=== PATIENT | female | born 1970 | race Caucasian/White ===

== ENCOUNTER 2021-10-19 15:01 | Inpatient (IN) | payer MEDICARE, OTHER ==
[~2021-10-19] VITALS: Ht 157.5 cm; Wt 56.7 kg
--- NOTE | 2021-10-19 15:14 | NUR ---
Sent by the SNF staff due to agitation and behavioral aggression towards staff. AMBULATYORY, PLACED ON BED, AAOX4, CALM. KNOWN HX. ANXIETY DISORDER
[2021-10-19] MEDS ORDERED: OLANZAPINE 5 MG TABLET PO ONE (15:30)
--- NOTE | 2021-10-19 15:30 | NUR ---
COMPRESSED AIR PILE DRIVER OPERATOR AT BED SIDE
[2021-10-19] MEDS ORDERED: OLANZAPINE 5 MG TABLET ONE (15:34)
--- NOTE | 2021-10-19 15:45 | NUR ---
X-RAY TECH AT BED SIDE
[2021-10-19] MEDS ORDERED: METO25TA20 PO (16:05)
[2021-10-19] MEDS ORDERED: MIDO5TAB4 PO (16:05)
[2021-10-19] MEDS ORDERED: IBUP-2715 PO (16:05)
[2021-10-19] MEDS ORDERED: SPIR25TA6 PO (16:05)
[2021-10-19] MEDS ORDERED: FOLI0.8C PO (16:05)
[2021-10-19] MEDS ORDERED: TOPI25TA PO (16:05)
[2021-10-19] MEDS ORDERED: FURO-144 PO (16:05)
[2021-10-19] MEDS ORDERED: THIA100T70 PO (16:05)
[2021-10-19] MEDS ORDERED: ACET-868 PO (16:05)
[2021-10-19] MEDS ORDERED: ALLO100T PO (16:05)
[2021-10-19] MEDS ORDERED: ASPI-1169 PO (16:05)
[2021-10-19] MEDS ORDERED: QUET200T PO (16:05)
[2021-10-19 16:17] LABS: BASOPHILS % (AUTO) 0.8 % (0.0-2.0); EOSINOPHILS % (AUTO) 2.4 % (0.0-6.0); HEMATOCRIT 44 % (33-45); HEMOGLOBIN 14.2 g/dL (11.5-14.8); LYMPHOCYTES # (AUTO) 1.1 K/uL (0.8-4.8); MEAN CORPUSCULAR HGB CONC 33 g/dl (31.0-36.0); MEAN CORPUSCULAR VOLUME 84 fL (82-100); MONOCYTES # (AUTO) 0.7 K/uL (0.1-1.30); MONOCYTES % (AUTO) 13.1 % (2.0-12.0); NEUTROPHILS # (AUTO) 3.1 K/uL (1.8-8.9); NEUTROPHILS % (AUTO) 61.7 % (43.0-81.0); PLATELET COUNT (AUTO) 134 K/uL (150-450); RED BLOOD CELL COUNT(AUTO) 5.19 MIL/uL (4.0-5.2)
[2021-10-19 16:46] LABS: CALCIUM, SERUM 8.6 mg/dL (8.5-10.1); CARBON DIOXIDE 25 mmol/L (21-32); CHLORIDE 104 mmol/L (98-107); CREATININE 0.9 mg/dL (0.6-1.3); GLUCOSE 93 mg/dL (74-106); POTASSIUM 3.4 mmol/L (3.5-5.1); SODIUM SERUM 140 mmol/L (136-145); UREA NITROGEN, BLOOD 23 mg/dL (7-18)
[2021-10-19 16:54] LABS: ALANINE AMINOTRANSFERASE 19 U/L (12-78); ALBUMIN 3.4 g/dL (3.4-5.0); ALKALINE PHOSPHATASE 86 U/L (46-116); ASPARTATE AMINOTRANSFERASE 32 U/L (15-37); BILIRUBIN,DIRECT 1.3 mg/dL (0.0-0.2); BILIRUBIN,TOTAL 2.1 mg/dL (0.2-1.0)
--- NOTE | 2021-10-19 17:11 | NUR ---
URINE COLLECTED AND SENT TO LAB
[2021-10-19 17:13] LABS: ACETAMINOPHEN < 2 ug/ml (10-30); ALCOHOL, BLOOD < 3 mg/dL (0-0)
--- NOTE | 2021-10-19 17:32 | NUR ---
SWAB FOR COVID19 SENT TO LAB
--- NOTE | 2021-10-19 17:40 | NUR ---
called [facility] psych clinician. Was notified of pt status and has an eta of [id number]
[2021-10-19 18:11] LABS: BILIRUBIN,URINE NEGATIVE (NEGATIVE); COLOR,URINE YELLOW (YELLOW); LEUKOCYTE ESTERASE ,URINE NEGATIVE (NEGATIVE); NITRITE, URINE NEGATIVE (NEGATIVE); PH,URINE 5.5 (5.0-8.0); PROTEIN,URINE NEGATIVE (NEGATIVE); UGLUCOSE NEGATIVE (NEGATIVE)
[2021-10-19 18:14] LABS: BACTERIA,URINE None seen /HPF (None Seen); WBC,URINE 0-2 /HPF (0-3)
--- NOTE | 2021-10-19 19:40 | NUR ---
gps [id number]
--- NOTE | 2021-10-19 19:55 | NUR ---
[facility]SA SWAB COLLECTED AND SENT TO LAB. PATIENT'S BELONGINGS LIST DONE.
--- NOTE | 2021-10-19 19:55 | NUR ---
REPORT GIVEN TO JEIMY ARCOS
[2021-10-19] MEDS ORDERED: MIDODRINE HCL (5MG) 5 MG TABLET PO PRN ×2 (20:00→20:08)
[2021-10-19] MEDS ORDERED: ACETAMINOPHEN 325 MG TABLET PO PRN ×2 (20:00→21:00)
[2021-10-19] MEDS ORDERED: IBUPROFEN 200 MG TABLET PO PRN (20:00)
--- NOTE | 2021-10-19 20:02 | NUR ---
PATIENT BEING TRANSFERRED TO [facility]
[2021-10-19] MEDS ORDERED: BLOOD SUGAR DIAGNOSTIC 1 EACH STRIP IN ONE (21:00)
[2021-10-19] MEDS ORDERED: MAGNESIUM HYDROXIDE 30 ML UDC PO PRN (21:00)
[2021-10-19] MEDS ORDERED: TEMAZEPAM 7.5 MG CAPSULE PO PRN (21:00)
[2021-10-19] MEDS ORDERED: MAG HYDROX/AL HYDROX/SIMETH 30 ML UDC PO PRN (21:00)
--- NOTE | 2021-10-19 23:54 | NUR ---
GPS RN ADMITTING NOTES: RECEIVED PATIENT FROM ER AT 2009. PATIENT WAS BROUGHT IN BY ER ESCORT ON A STRETCHER. PATIENT IS ON A 5150 HOLD FOR GD, HOLD WAS PLACED ON 10/19/21 AT 1845. PER HOLD, PATIENT WAS BROUGHT TO ER BY AMBULANCE FROM [facility] D/T INCREASED AGITATION, REFUSING TO FOLLOW RULES AND REDIRECTION, CAUGHT SMOKING INSIDE HER ROOM WITH NO REGARD FOR HER OWN SAFETY AND SAFETY OF OTHERS. WHILE IN ER PATIENT WAS DISORGANIZED, MUMBLING AND DELUSIONAL STATING "THE TRAIN IS WATCHING ME AND THE OTHER PEOPLE". UPON FACE TO FACE EVALUATION, PATIENT IS A/O X1-2, APPEARS DEPRESSED, BLUNTED AFFECT, DISORGANIZED, DISORIENTED, LAUGHING INAPPROPRIATELY, ANXIOUS, POOR HISTORIAN, POOR INSIGHT. PATIENT [id number]. SKIN ASSESSMENT DONE/SKIN INTACT. PATIENT REFUSED PNEUMONIA VACCINE AND REFUSED TO SIGN ALL ADMISSION PAPERWORK. PER PATIENT, SHE IS VACCINATED AND THINKS "IT'S PFIZER, I HAD IT TWICE THIS YEAR" BUT CAN'T REMEMBER THE DATES. PATIENT BELONGINGS WERE INVENTORIED AND CONTRABAND REMOVED AND PLACED IN PATIENT CONTRABAND LOCKER AND SUPERVISORS SAFE. PATIENT HAVE NO S/S OF DISTRESS, RESPIRATION EVEN AND UNLABORED WITH EQUAL RISE AND FALL OF THE CHEST, ON ROOM AIR. PATIENT IS UNDER THE PSYCHIATRIC CARE OF DR ALTMAN AND MEDICAL CARE OF JAKOB. PATIENT IS ORIENTED TO STAFF AND UNIT. PATIENT RIGHTS BOOKLET AND PRESCRIPTION MEDICATION GUIDE GIVEN TO PATIENT. PATIENT OFFERED FLUID AND SNACKS TOLERATED. ALL PATIENT CARE NEEDS HAVE BEEN MET ANTICIPATED. PATIENT HAS NO NEED AT THIS TIME. BED IN LOW LOCKED POSITION, SIDE RAILS UP X2 FOR SAFETY. WILL CONTINUE TO MONITOR Q15 FOR SAFETY, MOOD AND BEHAVIOR.
[2021-10-20 00:17] VITALS: BP 101/71
[2021-10-20] MEDS: LORAZEPAM 0.5 MG TABLET PO PRN (01:52)
--- NOTE | 2021-10-20 01:55 | NUR ---
GPS RN NOTES: PATIENT REQUESTED FOR ANTI ANXIETY MEDICATION. ATIVAN 0.5MG 1TAB GIVEN PO AT 0152. WILL CONTINUE TO MONITOR.
[2021-10-20] MEDS: ALBUTEROL FS 2.5 MG/0.5 ML VIAL.NEB IH PRN ×2 (02:40→21:37)
--- NOTE | 2021-10-20 05:56 | NUR ---
GPS RN NOTES: PATIENT DID NOT GIVE ANY NAME TO NOTIFY OF HER ADMISSION. PER PATIENT NOT NOW.
[2021-10-20 07:35] LABS: CHOLESTEROL 112 mg/dL (<200); HDL CHOLESTEROL 25 mg/dL (40-60); LDL 76 mg/dL (0-99); TRIGLYCERIDES 81 mg/dL (30-150)
[2021-10-20 07:39] LABS: ALBUMIN 3.3 g/dL (3.4-5.0); BILIRUBIN,TOTAL 1.8 mg/dL (0.2-1.0); CALCIUM, SERUM 8.6 mg/dL (8.5-10.1); CREATININE 0.9 mg/dL (0.6-1.3); POTASSIUM 3.7 mmol/L (3.5-5.1); TOTAL PROTEIN, SERUM 6.7 g/dL (6.4-8.2)
[2021-10-20 08:00] VITALS: BP 100/63
[2021-10-20] MEDS: FUROSEMIDE 40 MG TABLET PO SCH (09:00)
[2021-10-20] MEDS: METOPROLOL TARTRATE 25 MG TABLET PO SCH (09:00)
[2021-10-20] MEDS: SPIRONOLACTONE 25 MG TABLET PO SCH (09:00)
[2021-10-20] MEDS: FOLIC ACID 1 MG TABLET PO SCH (09:09)
[2021-10-20] MEDS: ALLOPURINOL 100 MG TABLET PO SCH (09:09)
[2021-10-20] MEDS: TOPIRAMATE 25 MG TABLET PO SCH (09:09)
[2021-10-20] MEDS: THIAMINE HCL 100 MG TABLET PO SCH (09:09)
[2021-10-20] MEDS: ASPIRIN 81 MG TAB.CHEW PO SCH (09:09)
--- NOTE | 2021-10-20 10:23 | NUR ---
RN-CO: PATIENT IS COOPERATIVE TO CARE, PREOCCUPIED WITH HER OWN THOUGHTS BUT GUARDED, UNMOTIVATED TO SELFCARE. I WILL CONTINUE TO MONITOR.
--- NOTE | 2021-10-20 10:40 | NUR ---
CHRISTIAN Initial Discharge Plan: Pt currently resides at an assisted living located at [address] [place] [address], [facility]; ([phone]). SW attempted to contact pt's facility and the number was busy, SW will attempt again. Pt does not have any supportive contact at this time. CHRISTIAN will work with the MD, treatment team, and family to help coordinate appropriate discharge.
--- NOTE | 2021-10-20 10:41 | NUR ---
CHRISTIAN Clinical note: Patient placed on a 5150 hold for GD. Patient was agitated at her facility and was smoking in her room. Pt currently resides at an assisted living located at [address] [place] [address], [facility]; ([phone]). SW attempted to contact pt's facility and the number was busy, SW will attempt again. Pt does not have any supportive contact at this time.
--- NOTE | 2021-10-20 10:42 | NUR ---
Social Work Note/Substance Abuse Intervention: Patient was provided with a brief substance abuse intervention and referred to [facility] ([phone]), [facility] ([phone]), and [facility] ([phone]) for smoking.
--- NOTE | 2021-10-20 10:43 | NUR ---
Treatment Plan: Patient refused to sign treatment plan due to being suspicious.
--- NOTE | 2021-10-20 11:56 | NUR ---
Facility Contact: SW contacted [facility] ([phone]) assisted living and spoke with Janelle who stated that [facility] reported that pt cannot return back and that pt will be going to a nursing facility. Pt has only resided at [facility] for one week. No family contact. SW will work with pt to coordinate a nursing facility.
--- NOTE | 2021-10-20 14:10 | NUR ---
Facility Contact: CHRISTIAN received a call from Brittany adorno from [facility] ([phone]) who stated that this pt was residing at [facility] and upon dc they would want to review her packet to admit pt. CHRISTIAN will send clinicals on 10/22, , when updated clinicals are available. CHRISTIAN will send H & P, progress notes, and medication list.
[2021-10-20 16:00] VITALS: BP 109/63
[2021-10-20] MEDS: ENSURE ENLIVE CHOC 237 ML CAN PO SCH (17:15)
--- NOTE | 2021-10-20 19:40 | NUR ---
GPS RN OPENING NOTES: RECEIVED PATIENT IN DAY ROOM WATCHING TV, A/O X2. APPEARS DEPRESSED, DISHEVELED, PASSIVE, PER PATIENT "I AM SAD AND WHEN ASKED WHY, PATIENT REPLIED, "GENERALIZED ABOUT MY LIFE, I JUST WANT TO GET MY LIFE TOGETHER AND START PAINTING WHICH MAKES ME HAPPY". PATIENT ENCOURAGED TO VERBALIZE FEELINGS AND PARTICIPATE IN UNIT ACTIVITIES. DENIES PAIN, DENIES SI AT THIS TIME. NO S/S OF DISTRESS. RESPIRATION EVEN AND UNLABORED WITH EQUAL RISE AND FALL OF THE CHEST, ON ROOM AIR. OFFERED FLUID AND SNACKS TOLERATED. BED IN LOW LOCKED POSITION, CALL WYMAN WITHIN REACH. WILL CONTINUE TO MONITOR Q15 FOR MOOD, SAFETY AND BEHAVIOR.
[2021-10-20 20:22] VITALS: BP 101/52
[2021-10-20] MEDS: OLANZAPINE 10 MG TABLET PO SCH (21:24)
--- NOTE | 2021-10-21 06:52 | NUR ---
GPS RN CLOSING NOTES: PATIENT IS CURRENTLY LAYING ON BED, AWAKE, A/O X1-2. PATIENT SLEPT 5HRS THIS SHIFT. NO S/S OF DISTRESS. RESPIRATION EVEN AND UNLABORED WITH EQUAL RISE AND FALL OF THE CHEST, ON ROOM AIR. ALL PATIENT CARE NEEDS HAVE BEEN MET ANTICIPATED. WILL CONTINUE TO MONITOR Q15 FOR SAFETY, MOOD AND BEHAVIOR AND ENDORSE TO AM SHIFT.
[2021-10-21 08:00] VITALS: BP 111/74
[2021-10-21] MEDS: ENSURE ENLIVE CHOC 237 ML CAN PO SCH ×2 (08:00→16:23)
[2021-10-21] MEDS: ALLOPURINOL 100 MG TABLET PO SCH (08:08)
[2021-10-21] MEDS: THIAMINE HCL 100 MG TABLET PO SCH (08:08)
[2021-10-21] MEDS: FUROSEMIDE 40 MG TABLET PO SCH (08:08)
[2021-10-21] MEDS: SPIRONOLACTONE 25 MG TABLET PO SCH (08:09)
[2021-10-21] MEDS: TOPIRAMATE 25 MG TABLET PO SCH (08:09)
[2021-10-21] MEDS: METOPROLOL TARTRATE 25 MG TABLET PO SCH (08:09)
[2021-10-21] MEDS: FOLIC ACID 1 MG TABLET PO SCH (08:09)
[2021-10-21] MEDS: ASPIRIN 81 MG TAB.CHEW PO SCH (08:10)
--- NOTE | 2021-10-21 09:26 | NUR ---
RN-CO: PATIENT IS IN HER ROOM, DENIED PAIN AND DISCOMFORTS. SHE SMILED AT ME WHEN I GREETED HER. SHE IS UNKEMPT AND DISHEVELED. UNMOTIVATED TO SELFCARE. I WILL CONTINUE TO MONITOR AND ENCOURAGE HER TO SHOWER AND ATTEND GROUP ACTIVITIES.
--- NOTE | 2021-10-21 09:43 | NUR ---
RN-CO: OBTAINED ORDER FOR COVID TEST FROM DR PRASAD, PT HAS BEEN COUGHING.
[2021-10-21 16:00] VITALS: BP 105/63
[2021-10-21 20:00] VITALS: BP 115/64
[2021-10-21] MEDS: OLANZAPINE 10 MG TABLET PO SCH (21:11)
[2021-10-22 08:00] VITALS: BP 108/73
[2021-10-22] MEDS: ALBUTEROL FS 2.5 MG/0.5 ML VIAL.NEB IH PRN (08:27)
[2021-10-22] MEDS: THIAMINE HCL 100 MG TABLET PO SCH (08:29)
[2021-10-22] MEDS: ASPIRIN 81 MG TAB.CHEW PO SCH (08:29)
[2021-10-22] MEDS: ALLOPURINOL 100 MG TABLET PO SCH (08:29)
[2021-10-22] MEDS: FOLIC ACID 1 MG TABLET PO SCH (08:29)
[2021-10-22] MEDS: TOPIRAMATE 25 MG TABLET PO SCH (08:30)
[2021-10-22] MEDS: METOPROLOL TARTRATE 25 MG TABLET PO SCH (08:30)
[2021-10-22] MEDS: SPIRONOLACTONE 25 MG TABLET PO SCH (08:31)
[2021-10-22] MEDS: FUROSEMIDE 40 MG TABLET PO SCH (08:31)
[2021-10-22] MEDS: GUAIFENESIN/CODEINE 10 ML UDC PO PRN (08:37)
--- NOTE | 2021-10-22 08:39 | NUR ---
RN-NOTES NOTED PATIENT COUGHING, ROBITUSSIN AC SYRUP 10ML GIVEN PRN ORDER.
[2021-10-22] MEDS: ENSURE ENLIVE CHOC 237 ML CAN PO SCH ×2 (09:09→17:13)
--- NOTE | 2021-10-22 09:40 | NUR ---
RN-NOTES PATIENT LYING IN BED INTERMITTENTLY SLEEPING EASILY AROUSED NO ACUTE DISTRESS NOTED.NO EPISODE OF COUGHING NOTED.
--- NOTE | 2021-10-22 11:23 | NUR ---
SNF Referral: SW sent clinicals to Brittany calixto ([phone]) for [facility] SNF for placement. SW sent H & P, progress notes, and medication list.
[2021-10-22 16:00] VITALS: BP 99/58
--- NOTE | 2021-10-22 17:34 | NUR ---
RN-NOTES PATIENT IS VISIBLE IN THE UNIT CALM AND COOPERATIVE ABLE TO MAKE NEEDS KNOWN TO THE STAFF,PARTICIPATES IN THE GROUP.COMPLIANT WITH MEDICATIONS,NO ACUTE DISTRESS NOTED. AMBULATORY STEADY GAIT.WILL CONT. MONITORING FOR SAFETY AND BEHAVIOR. WILL ENDORSE TO INCOMING NURSE FOR CONTINUITY OF CARE.
--- NOTE | 2021-10-22 19:30 | NUR ---
GPS RN NOTE, RECEIVED PATIENT AWAKE AND IN BED, NO S/S OR COMPLAINTS OF PAIN AT THIS TIME. PATIENT IS DISPLAYING NO S/S OF APPARENT DISTRESS AT THIS TIME. PATIENT BREATHING IS UNLABORED WITH EQUAL RISE AND FALL OF THE CHEST. PATIENT IS ALERT AND ORIENTED X 1-2 ON ROOM AIR WITH A SPO2 96%. PATIENT IS COMPLIANT WITH MEDICATIONS, ANXIOUS AT TIMES, RESPONDING TO INTERNAL STIMULI, MAKES NEEDS KNOWN, AND COOPERATIVE. PATIENT DENIES SUICIDAL AND HOMICIDAL IDEATIONS AT THIS TIME. PATIENT ASSISTED WITH TURNING AND REPOSITIONING Q2HR AND PRN FOR COMFORT AND CIRCULATION. PATIENT HAS NO NEEDS AT THIS TIME. PATIENT EDUCATED ON THE USE OF THE CALL WYMAN. PATIENT BED SIDE RAILS UP X 2 FOR SAFETY. PATIENT BED IS LOCKED, LOW, WITH BED ALARM ON. WILL CONTINUE TO MONITOR THIS PATIENT Q15 MINUTES WITH THE HELP OF STAFF TO MAINTAIN SAFETY.
[2021-10-22 20:00] VITALS: BP 103/60
[2021-10-22] MEDS: OLANZAPINE 10 MG TABLET PO SCH (21:33)
[2021-10-23 08:00] VITALS: BP 102/77
[2021-10-23] MEDS: SPIRONOLACTONE 25 MG TABLET PO SCH (09:00)
[2021-10-23] MEDS: FUROSEMIDE 40 MG TABLET PO SCH (09:00)
[2021-10-23] MEDS: METOPROLOL TARTRATE 25 MG TABLET PO SCH (09:00)
[2021-10-23] MEDS: THIAMINE HCL 100 MG TABLET PO SCH (09:05)
[2021-10-23] MEDS: ALLOPURINOL 100 MG TABLET PO SCH (09:05)
[2021-10-23] MEDS: ASPIRIN 81 MG TAB.CHEW PO SCH (09:05)
[2021-10-23] MEDS: FOLIC ACID 1 MG TABLET PO SCH (09:05)
[2021-10-23] MEDS: TOPIRAMATE 25 MG TABLET PO SCH (09:05)
[2021-10-23] MEDS: ENSURE ENLIVE CHOC 237 ML CAN PO SCH ×2 (09:13→17:04)
[2021-10-23] MEDS: LORAZEPAM 0.5 MG TABLET PO PRN (10:06)
--- NOTE | 2021-10-23 10:09 | NUR ---
RN-NOTES PATIENT RESPONDING TO INTERNAL STIMULI,SCREAMING AND YELLING IN HER ROOM. REDIRECTED AND REORIENTED PATIENT. ATIVAN 0.5MG P.O GIVEN PRN ORDER. WILL CONT. MONITORING FOR SAFETY AND BEHAVIOR.
--- NOTE | 2021-10-23 11:10 | NUR ---
RN-NOTES PATIENT WATCHING TV IN THE DAY ROOM,CALM,NO ACUTE DISTRESS NOTED.
--- NOTE | 2021-10-23 15:45 | NUR ---
Court Hearing: Patient's court hearing for 8720 was today and it was upheld for GD.
--- NOTE | 2021-10-23 15:45 | NUR ---
SNF Referral: SW spoke with Brtitany calixto ([phone]) from [facility] and stated pt is accepted.
[2021-10-23 16:00] VITALS: BP 111/65
--- NOTE | 2021-10-23 18:46 | NUR ---
RN-NOTES PATIENT IS VISIBLE IN THE UNIT CALM AND COOPERATIVE AT THIS TIME. ABLE TO MAKE NEEDS KNOWN TO THE STAFF, PARTICIPATES IN THE GROUP.COMPLIANT WITH MEDICATIONS,NO ACUTE DISTRESS NOTED. AMBULATORY STEADY GAIT.WILL CONT. MONITORING FOR SAFETY AND BEHAVIOR. WILL ENDORSE TO INCOMING NURSE FOR CONTINUITY OF CARE.
[2021-10-23 20:27] VITALS: BP 104/78
[2021-10-23] MEDS: OLANZAPINE 10 MG TABLET PO SCH (21:43)
[2021-10-23] MEDS: GUAIFENESIN/CODEINE 10 ML UDC PO PRN (21:47)
--- NOTE | 2021-10-23 21:47 | NUR ---
GPS RN NOTE, PATIENT HAS A COMPLAINT OF COUGH AND IS REQUESTING ROBITUSSIN AC AT THIS TIME. PATIENT VITAL SIGNS ARE STABLE. GAVE ROBITUSSIN AC SYRUP 10ML PO Q6HR PRN ORDERED. WILL CONTINUE TO MONITOR THIS PATIENT WITH THE HELP OF STAFF.
[2021-10-24 08:00] VITALS: BP 98/72
[2021-10-24] MEDS: ASPIRIN 81 MG TAB.CHEW PO SCH (09:00)
[2021-10-24] MEDS: SPIRONOLACTONE 25 MG TABLET PO SCH (09:00)
[2021-10-24] MEDS: TOPIRAMATE 25 MG TABLET PO SCH (09:00)
[2021-10-24] MEDS: FUROSEMIDE 40 MG TABLET PO SCH (09:00)
[2021-10-24] MEDS: ALLOPURINOL 100 MG TABLET PO SCH (09:00)
[2021-10-24] MEDS: THIAMINE HCL 100 MG TABLET PO SCH (09:00)
[2021-10-24] MEDS: METOPROLOL TARTRATE 25 MG TABLET PO SCH (09:00)
[2021-10-24] MEDS: FOLIC ACID 1 MG TABLET PO SCH (09:00)
[2021-10-24] MEDS: ENSURE ENLIVE CHOC 237 ML CAN PO SCH ×2 (10:30→17:00)
[2021-10-24 16:05] VITALS: BP 94/61
--- NOTE | 2021-10-24 19:30 | NUR ---
GPS RN NOTE, RECEIVED PATIENT AWAKE AND IN BED, NO S/S OR COMPLAINTS OF PAIN AT THIS TIME. PATIENT IS DISPLAYING NO S/S OF APPARENT DISTRESS AT THIS TIME. PATIENT BREATHING IS UNLABORED WITH EQUAL RISE AND FALL OF THE CHEST. PATIENT IS ALERT AND ORIENTED X 1-2 ON ROOM AIR WITH A SPO2 95%. PATIENT IS COMPLIANT WITH MEDICATIONS, ANXIOUS AT TIMES, RESPONDING TO INTERNAL STIMULI, MAKES NEEDS KNOWN, AND COOPERATIVE. PATIENT DENIES SUICIDAL AND HOMICIDAL IDEATIONS AT THIS TIME. PATIENT ASSISTED WITH TURNING AND REPOSITIONING Q2HR AND PRN FOR COMFORT AND CIRCULATION. PATIENT HAS NO NEEDS AT THIS TIME. PATIENT EDUCATED ON THE USE OF THE CALL WYMAN. PATIENT BED SIDE RAILS UP X 2 FOR SAFETY. PATIENT BED IS LOCKED, LOW, WITH BED ALARM ON. WILL CONTINUE TO MONITOR THIS PATIENT Q15 MINUTES WITH THE HELP OF STAFF TO MAINTAIN SAFETY.
[2021-10-24 20:09] VITALS: BP 96/68
--- NOTE | 2021-10-24 21:43 | NUR ---
GPS RN NOTE, PATIENT REFUSED ZYPREXA 15MG PO HS. OFFERED AFOREMENTIONED THREE TIMES AND STILL PATIENT REFUSED STATING, " I WON'T TO BE NATURAL AND NOT BE ON DRUGS TONIGHT ". EDUCATED PATIENT ON THE RISKS AND BENEFITS OF TAKING AND REFUSING ZYPREXA. WILL CONTINUE TO MONITOR THIS PATIENT WITH THE HELP OF STAFF.
[2021-10-24] MEDS: OLANZAPINE 10 MG TABLET PO SCH (21:47)
[2021-10-24] MEDS: GUAIFENESIN/CODEINE 10 ML UDC PO PRN (21:50)
[2021-10-25 08:00] VITALS: BP 100/68
[2021-10-25] MEDS: ENSURE ENLIVE CHOC 237 ML CAN PO SCH ×2 (08:18→16:52)
[2021-10-25] MEDS: METOPROLOL TARTRATE 25 MG TABLET PO SCH (09:00)
[2021-10-25] MEDS: FOLIC ACID 1 MG TABLET PO SCH (09:01)
[2021-10-25] MEDS: THIAMINE HCL 100 MG TABLET PO SCH (09:01)
[2021-10-25] MEDS: FUROSEMIDE 40 MG TABLET PO SCH (09:01)
[2021-10-25] MEDS: ALLOPURINOL 100 MG TABLET PO SCH (09:01)
[2021-10-25] MEDS: ASPIRIN 81 MG TAB.CHEW PO SCH (09:02)
[2021-10-25] MEDS: TOPIRAMATE 25 MG TABLET PO SCH (09:02)
[2021-10-25] MEDS: SPIRONOLACTONE 25 MG TABLET PO SCH (09:02)
--- NOTE | 2021-10-25 13:42 | NUR ---
RN-CO: PATIENT IS AWAKE, DENIED PAIN AND DISCOMFORTS. SHE REMAINS ISOLATIVE AND WITHDRAWN BUT STATED SHE FEELS A LOT BETTER.HER AFFECT IS BRIGHT AND SHE IS WELL GROOMED.
[2021-10-25 16:00] VITALS: BP 101/61
--- NOTE | 2021-10-25 18:13 | NUR ---
RN-CO: SPOKE WITH JAVAD , ECHOCARDIOGRAM WILL BE DONE TOMM.
--- NOTE | 2021-10-25 19:30 | NUR ---
GPS RN OPENING NOTES: RECEIVED PATIENT SITTING ON BED, A/O X2. APPROPRIATE AFFECT, DISHEVELED, PASSIVE, GUARDED, ISOLATIVE. PATIENT ENCOURAGED TO VERBALIZE FEELINGS AND PARTICIPATE IN UNIT ACTIVITIES. DENIES PAIN, DENIES SI AT THIS TIME. NO S/S OF DISTRESS. RESPIRATION EVEN AND UNLABORED WITH EQUAL RISE AND FALL OF THE CHEST, ON ROOM AIR. OFFERED FLUID AND SNACKS TOLERATED. BED IN LOW LOCKED POSITION, CALL WYMAN WITHIN REACH. WILL CONTINUE TO MONITOR Q15 FOR MOOD, SAFETY AND BEHAVIOR.
[2021-10-25 20:00] VITALS: BP 100/63
[2021-10-25] MEDS: OLANZAPINE 10 MG TABLET PO SCH (21:32)
--- NOTE | 2021-10-25 21:37 | NUR ---
GPS RN NOTES: OLANZAPINE 0.5MG WASTED PER PARTIAL DOSE ORDER.
[2021-10-25] MEDS: GUAIFENESIN/CODEINE 10 ML UDC PO PRN (23:52)
--- NOTE | 2021-10-25 23:53 | NUR ---
GPS RN NOTES: ROBITUSSIN 10ML GIVEN PO FOR COUGH AT 2352. WILL CONTINUE TO MONITOR.
--- NOTE | 2021-10-26 05:36 | NUR ---
GPS RN NOTES: WEEKLY SKIN ASSESSMENT DONE, SKIN INTACT.
--- NOTE | 2021-10-26 06:39 | NUR ---
GPS RN CLOSING NOTES: PATIENT IS CURRENTLY SLEEPING. PATIENT SLEPT 7HRS THIS SHIFT. NO S/S OF DISTRESS. RESPIRATION EVEN AND UNLABORED WITH EQUAL RISE AND FALL OF THE CHEST, ON ROOM AIR. ALL PATIENT CARE NEEDS HAVE BEEN MET ANTICIPATED. WILL CONTINUE TO MONITOR Q15 FOR SAFETY, MOOD AND BEHAVIOR AND ENDORSE TO AM SHIFT.
[2021-10-26 08:00] VITALS: BP 100/76
[2021-10-26] MEDS: ENSURE ENLIVE CHOC 237 ML CAN PO SCH ×2 (08:00→17:52)
[2021-10-26] MEDS: FOLIC ACID 1 MG TABLET PO SCH (09:54)
[2021-10-26] MEDS: SPIRONOLACTONE 25 MG TABLET PO SCH (09:54)
[2021-10-26] MEDS: FUROSEMIDE 40 MG TABLET PO SCH (09:54)
[2021-10-26] MEDS: METOPROLOL TARTRATE 25 MG TABLET PO SCH (09:55)
[2021-10-26] MEDS: TOPIRAMATE 25 MG TABLET PO SCH (09:55)
[2021-10-26] MEDS: ALLOPURINOL 100 MG TABLET PO SCH (09:55)
[2021-10-26] MEDS: THIAMINE HCL 100 MG TABLET PO SCH (09:55)
[2021-10-26] MEDS: ASPIRIN 81 MG TAB.CHEW PO SCH (09:55)
[2021-10-26 16:00] VITALS: BP 93/56
--- NOTE | 2021-10-26 19:49 | NUR ---
GPS RN OPENING NOTES: RECEIVED PATIENT WATCHING TV IN DAY ROOM. A/O X2. APPROPRIATE AFFECT, DISHEVELED, PASSIVE, GUARDED, COOPERATIVE. ENCOURAGED TO VERBALIZE FEELINGS. DENIES PAIN, DENIES SI, HI AT THIS TIME. NO S/S OF DISTRESS. RESPIRATION EVEN AND UNLABORED WITH EQUAL RISE AND FALL OF THE CHEST, ON ROOM AIR. OFFERED FLUID AND SNACKS TOLERATED. BED IN LOW LOCKED POSITION, CALL WYMAN WITHIN REACH. WILL CONTINUE TO MONITOR Q15 FOR MOOD, SAFETY AND BEHAVIOR.
[2021-10-26 20:00] VITALS: BP 92/63
[2021-10-26] MEDS: OLANZAPINE 10 MG TABLET PO SCH (22:00)
[2021-10-26] MEDS: GUAIFENESIN/CODEINE 10 ML UDC PO PRN (22:01)
--- NOTE | 2021-10-26 22:05 | NUR ---
GPS RN NOTES: ROBITUSSIN 10ML GIVEN AT 2201 FOR COUGH.
[2021-10-27] MEDS: ALBUTEROL FS 2.5 MG/0.5 ML VIAL.NEB IH PRN (00:09)
--- NOTE | 2021-10-27 06:27 | NUR ---
GPS RN NOTES: COVID SWAB FOR PLACEMENT TAKEN AND SENT TO THE LAB.
--- NOTE | 2021-10-27 07:07 | NUR ---
GPS RN CLOSING NOTES: PATIENT IS CURRENTLY SLEEPING. PATIENT SLEPT 6HRS THIS SHIFT. NO S/S OF DISTRESS. RESPIRATION EVEN AND UNLABORED WITH EQUAL RISE AND FALL OF THE CHEST, ON ROOM AIR. ALL PATIENT CARE NEEDS HAVE BEEN MET ANTICIPATED. WILL CONTINUE TO MONITOR Q15 FOR SAFETY, MOOD AND BEHAVIOR AND ENDORSE TO AM SHIFT.
[2021-10-27 08:00] VITALS: BP 129/75
[2021-10-27] MEDS: ENSURE ENLIVE CHOC 237 ML CAN PO SCH (08:00)
[2021-10-27 09:22] VITALS: BP 130/78
[2021-10-27] MEDS: SPIRONOLACTONE 25 MG TABLET PO SCH (09:22)
[2021-10-27] MEDS: ALLOPURINOL 100 MG TABLET PO SCH (09:22)
[2021-10-27] MEDS: FOLIC ACID 1 MG TABLET PO SCH (09:22)
[2021-10-27] MEDS: FUROSEMIDE 40 MG TABLET PO SCH (09:22)
[2021-10-27] MEDS: METOPROLOL TARTRATE 25 MG TABLET PO SCH (09:22)
[2021-10-27] MEDS: ASPIRIN 81 MG TAB.CHEW PO SCH (09:22)
[2021-10-27] MEDS: TOPIRAMATE 25 MG TABLET PO SCH (09:25)
[2021-10-27] MEDS: THIAMINE HCL 100 MG TABLET PO SCH (09:25)
--- NOTE | 2021-10-27 09:34 | NUR ---
SW Discharge Note: Patient will be discharged to shelter facility [facility] [address] [address], [place] [address]; ). Please arrange transportation at 1PM. Manager Of Case Management spoke with Brittany military aircraft designer at [facility]; ([phone], who stated patient will be accepted today. Patient has no supportive contact at this time. Patient is alert and oriented x2 and is unable to plan for self-care. Patient denies any suicidal or homicidal ideations. Patient is aware and agreeable with discharge plans. Patient will continue to follow-up with (psychiatrist) Dr. Ruiz [address], [place] [address]; ([phone]) and (pony roll finisher) Dr. Mccartney [address] [facility], [place] [address]; ([phone]). Patient presents with euthymic and congruent mood.
--- NOTE | 2021-10-27 13:30 | NUR ---
Patient discharged to [facility] in stable condition.Compliant with medications ,cooperative with treatment plans Patient denies SI/HI/AVH .Behavior improved ,psychiatric tx plans met ,medical tx plans differed for for continual monitoring .Educated pt about after care plan (Exit -care)and copy provided Returned personal belongings to patient med list given and explained to patient able to verbalize understanding, report given to Nghia BEDOYA in facility .Vs stable ,no c/o pain .Patient seen by and Dr.Sam Gonzales with discharge orders .Patient discharge at 1330 with ambulance.
== END 2021-10-27 13:30 | DRG 885 ==
LOC: ER 15:01 → GPS 19:45
PROVIDERS: ADMIT Psychiatry & Neurology Psychosomatic Medicine
DX: F25.0 Schizoaffective disorder, bipolar type (principal); I11.0 Hypertensive heart disease with heart failure; N17.9 Acute kidney failure, unspecified; I50.22 Chronic systolic (congestive) heart failure; F41.9 Anxiety disorder, unspecified; F19.90 Other psychoactive substance use, unspecified, uncomplicated; Z73.6 Limitation of activities due to disability; F39 Unspecified mood [affective] disorder; F32.A Depression, unspecified; F17.210 Nicotine dependence, cigarettes, uncomplicated; J44.9 Chronic obstructive pulmonary disease, unspecified; Z86.79 Personal history of other diseases of the circulatory system; R26.9 Unspecified abnormalities of gait and mobility; R45.1 Restlessness and agitation; Z59.00 Homelessness unspecified; Z79.82 Long term (current) use of aspirin; Z79.899 Other long term (current) drug therapy; Z91.51 Personal history of suicidal behavior
CPT/HCPCS: 36415; 71045-TC; 80048-TC; 80053-TC; 80061-TC; 80076-TC; 81001; 82962-TC; 85025-TC; 87081-TC; 93307-TC; C9803; G0480